=== PATIENT | male | born 1995 | race African-American/Black ===

== ENCOUNTER 2025-07-05 12:50 | Emergency (ER) | payer OTHER ==
[2025-07-05 12:53] VITALS: PULSE 100; RESP 16; O2SAT 97
== END 2025-07-05 13:53 | disposition left against medical advice (07) ==
LOC: ER 12:50
DX: R51.9 Headache, unspecified (principal); Z53.21 Procedure and treatment not carried out due to patient leaving prior to being seen by health care provider